=== PATIENT | male | born 1995 | race Caucasian/White ===

== ENCOUNTER 2016-08-02 12:57 | Emergency (ER) | payer OTHER ==
[~2016-08-02] VITALS: Ht 185.4 cm; Wt 84.4 kg
[2016-08-02 13:01] VITALS: TEMP 36.5; Ht 185.4 cm; Wt 84.4 kg
[2016-08-02] MEDS ORDERED: SODIUM CHLORIDE 0.9% 1000ML 1,000 ML IV STA (13:33)
[2016-08-02 13:57] LABS: BASO % 0.1 %; BASO ABS # 0.01 K/uL (0-0.2); COMPLETE YES; EOS % 0.8 %; IG% 0.1 %; LYMPH % 12.1 %; LYMPH ABS # 0.87 K/uL (1.2-3.4); MEAN CELL VOLUME 91.3 fL (80-100); MEAN PLATELET VOLUME 9.9 fL (7.4-10.4); MONO % 7.6 %; NEUT % 79.3 %; PLATELET COUNT 205 K/uL (130-400)
[2016-08-02 14:05] LABS: PROTHROMBIN TIME (PATIENT) 11.2 SECONDS (9.0-12.0)
[2016-08-02 14:20] LABS: BUN/CREATININE RATIO 11.3 (10-20); CALCIUM 9.3 mg/dl (8.5-10.1); CREATININE 0.93 mg/dl (0.60-1.40); POTASSIUM 3.8 mmol/L (3.5-5.1)
--- NOTE | 2016-08-02 14:37 | DIAGNOSTIC IMAGING REPORT ---
ABDOMEN 2VIEW W/PA CHEST RTN CLINICAL HISTORY: ABDOMINAL PAIN/GI pain. Nausea. COMPARISON STUDY: No previous studies for comparison. FINDINGS: Lungs are clear. Diaphragms smooth. Several oval radiopaque foreign bodies are identified within the stomach as well as transverse colon. Additionally represents ingested nonobstructive material. These at maximum measure 1.4 cm IMPRESSION: 1. Nonobstructive bowel pattern. 2. Several radiopaque densities within the bowel presumably representing ingested material. 3. Negative chest. Electronically signed by: William Cooper M.D. 08/02/2016 2:34 PM Dictated Date/Time: 08/02/2016 2:31 PM
[2016-08-02 14:42] LABS: URINE APPEARANCE CLOUDY (CLEAR); URINE BILIRUBIN NEG (NEG); URINE COLOR YELLOW; URINE NITRITE NEG (NEG); URINE PH 8.5 (4.5-7.5); URINE SPECIFIC GRAVITY 1.014 (1.000-1.030); UROBILINOGEN NEG (NEG)
[2016-08-02 14:43] LABS: MANUAL MICROSCOPIC REQUIRED? NO; REVIEW REQ? NO
[2016-08-02 15:26] VITALS: BP 110/57; PULSE 79; O2SAT 100
--- NOTE | 2016-08-02 19:49 | EMERGENCY ROOM VISIT NOTE ---
ED Visit Note First contact with patient: 13:07 Chief Complaint: I threw up blood. History of Present Illness: Mr. Caceres is a 20 year-old white male who ambulates into the ED accompanied by his mother complaining of hematemesis. Historically patient reports no significant gastrointestinal disorders or surgeries. Patient reports last week he had a decreased appetite and was not eating properly; he has been seen here previously for depression induce anorexia. Patient reports he has been having a lot of stress recently. Then this past weekend, 2 days ago, he reports he was drinking alcohol heavily. Tuesday into Tuesday morning he reports he started vomiting. His appetite returned and he reports he was eating hot dogs, pizza's, pepperoni and cheese, crackers. Initially his vomitus included foodstuffs and then his last episode of vomiting he reports describes as a dark red blood. Since that time he had no return of vomiting. Additionally patient reports for the last week he has been having a mild minimally productive cough of clear sputum. Currently he has no complaints and denies fevers, chills, sweats, skin eruptions , skin color changes, shortness of breath, chest pain, nausea, vomiting, diarrhea, constipation, rectal bleeding, black/tarry stools, urinary symptoms, hematuria, back/flank pain, easy bruising, easy bleeding, unusual bleeding. Review of Systems: As noted above in history of present illness. All body systems were reviewed and found to be negative as noted above. Past Medical History: Depression. Current Medications: Patient denies. Allergies to Medications: Morphine. Social History: Patient is currently University student; he feels safe in his home environment; he admits to chewing tobacco and alcohol use. Physical Examination: Vital Signs: Date Time Temp Pulse Resp B/P Pulse Ox O2 Delivery O2 Flow Rate FiO2 08/02/16 15:26 79 16 110/57 100 Room Air 08/02/16 13:01 36.5 67 20 128/82 99 Room Air GENERAL: 20-year-old male in no acute distress, nontoxic-appearing, afebrile and hemodynamically stable. NEUROLOGICAL: Awake, alert and oriented to person, place and time. Answering questions appropriately and following commands. Normal gait. Good hand eye coordination. SKIN: Warm, dry and pink. No soft tissue eruptions or trauma noted. HEENT: Atraumatic and normocephalic. PERRLA. Sclera white and conjunctiva pink. Oral cavity moist and pink. Pharynx is nonerythematous or edematous. Speech normal. No lymphadenopathy. Trachea midline. No jugular venous distention. BACK: No tenderness over the bony spine. No CVA tenderness. THORAX: Lungs sounds are clear to auscultation and equal bilaterally with symmetrical chest wall. No wheezing, rales or rhonchi. No crepitus, tenderness , subcutaneous air or deformities noted. HEART: Regular rate and rhythm. No gallops, rubs or murmurs are appreciated. ABDOMEN: Flat, soft and nontender. Positive bowel sounds in all quadrants. No guarding, rigidity or organomegaly. RECTAL: External hemorrhoid located at the 6 o'clock position. Normal rectal tone. No palpable rectal masses. Prostrate is smooth, firm and nontender. Heme-negative stools. EXTREMITIES: Moves all extremities well on command and with purpose. All distal neurovascular statuses are intact and equal bilaterally. ED Course: Patient is assessed as noted above. Laboratory Testing: Test 08/02/16 13:35 08/02/16 14:00 Range/Units White Blood Count 7.20 4.8-10.8 K/uL Red Blood Count 4.60 4.7-6.1 M/uL Hemoglobin 14.7 14.0-18.0 g/dL Hematocrit 42.0 42-52 % Mean Corpuscular Volume 91.3 80-100 fL Mean Corpuscular Hemoglobin 32.0 25-34 pg Mean Corpuscular Hemoglobin Concent 35.0 32-36 g/dl Platelet Count 205 130-400 K/uL Mean Platelet Volume 9.9 7.4-10.4 fL Neutrophils (%) (Auto) 79.3 % Lymphocytes (%) (Auto) 12.1 % Monocytes (%) (Auto) 7.6 % Eosinophils (%) (Auto) 0.8 % Basophils (%) (Auto) 0.1 % Neutrophils # (Auto) 5.70 1.4-6.5 K/uL Lymphocytes # (Auto) 0.87 1.2-3.4 K/uL Monocytes # (Auto) 0.55 0.11-0.59 K/uL Eosinophils # (Auto) 0.06 0-0.5 K/uL Basophils # (Auto) 0.01 0-0.2 K/uL RDW Standard Deviation 40.9 36.4-46.3 fL RDW Coefficient of Variation 12.6 11.5-14.5 % Immature Granulocyte % (Auto) 0.1 % Immature Granulocyte # (Auto) 0.01 0.00-0.02 K/uL Prothrombin Time 11.2 9.0-12.0 SECONDS Prothromb Time International Ratio 1.0 0.9-1.1 Sodium Level 141 136-145 mmol/L Potassium Level 3.8 3.5-5.1 mmol/L Chloride Level 106 98-107 mmol/L Carbon Dioxide Level 28 21-32 mmol/L Anion Gap 7.0 3-11 mmol/L Blood Urea Nitrogen 11 7-18 mg/dl Creatinine 0.93 0.60-1.40 mg/dl Est Creatinine Clear Calc Drug Dose 143.2 ml/min Estimated GFR () 136.5 Estimated GFR (Non- 117.8 BUN/Creatinine Ratio 11.3 10-20 Random Glucose 107 70-99 mg/dl Calcium Level 9.3 8.5-10.1 mg/dl Total Bilirubin 0.6 0.2-1 mg/dl Direct Bilirubin 0.1 0-0.2 mg/dl Aspartate Amino Transf (AST/SGOT) 13 15-37 U/L Alanine Aminotransferase (ALT/SGPT) 20 12-78 U/L Alkaline Phosphatase 81 45-117 U/L Total Protein 8.0 6.4-8.2 gm/dl Albumin 4.2 3.4-5.0 gm/dl Lipase 83 73-393 U/L Urine Color YELLOW Urine Appearance CLOUDY CLEAR Urine pH 8.5 4.5-7.5 Urine Specific [place] 1.014 1.000-1.030 Urine Protein NEG NEG Urine Glucose (UA) NEG NEG Urine Ketones NEG NEG Urine Occult Blood NEG NEG Urine Nitrite NEG NEG Urine Bilirubin NEG NEG Urine Urobilinogen NEG NEG Urine Leukocyte Esterase NEG NEG Urine WBC (Auto) 1-5 0-5 /hpf Urine RBC (Auto) 0-4 0-4 /hpf Urine Hyaline Casts (Auto) 1-5 0-5 /lpf Urine Epithelial Cells (Auto) 5-10 0-5 /lpf Urine Bacteria (Auto) NEG NEG Acute Abdominal X-Ray: Was read by myself and the radiologist showing a normal- appearing chest with no signs of infiltrates, effusions, pneumothorax, cardiomegaly or bony abnormalities. Abdominal component shows a normal- appearing gas pattern without evidence of obstruction. There does appear to be 3-4 foreign bodies in the transverse colon of questionable etiology. No free air under the diaphragm. Patient was hydrated with normal saline. I did question the patient about the foreign bodies in his abdomen and he reported he had no idea what these could be. Patient's case was reviewed with Dr. Drew; we agreed on diagnostic approach, treatment, disposition and plan. Patient's case was consulted with Dr. Menjivar, gastroenterology; she wrecked a PPI administration and outpatient follow-up. Patient and mother were educated about adri's findings and instructed on her treatment plan; they verbalizes understanding and agreement with this plan. Clinical Impression: Hematemesis. Decision-Making: Initially my differential diagnosis I considered gastritis, esophageal rupture, Shilpa-Braov tear, esophageal reflux, peptic ulcer disease and other causes. Disposition: Patient discharged home in stable condition accompanied by his mother; prior to departure he was reassessed and subjectively reported he was pain and symptom-free. Plan: Patient was encouraged to use 650 mg of acetaminophen every 6 hours as needed for pain. Patient was encouraged to use [id number] Zantac 2 times a day. Patient was encouraged use a bland diet for the next 48 hours and avoid stomach irritants until followed up with gastroenterology at home. Mother was encouraged to arrange for follow-up care with family physician and gastroenterology at home. Patient was encouraged return ED for severe abdominal pain, fevers, uncontrolled nausea/vomiting, return of bloody vomitus, any new bloody stools or any new/concerning symptoms. Patient was encouraged to follow-up with personal physician for recheck in 1-2 days. Patient was encouraged return the ED for worsening symptoms, fevers, or any new/ concerning symptoms.
== END 2016-08-02 15:51 | disposition home or self-care (01) ==
LOC: C.EDB 12:59 → C.EDA 15:51
DX: K92.0 Hematemesis (principal); R05 Cough; F32.9 Major depressive disorder, single episode, unspecified; F17.220 Nicotine dependence, chewing tobacco, uncomplicated; K64.4 Residual hemorrhoidal skin tags